=== PATIENT | female | born 1970 | race Caucasian/White ===

== ENCOUNTER 2017-10-18 16:07 | Emergency (ER) | payer MEDICAID, OTHER ==
[2017-10-18 16:30] VITALS: BP 149/87
--- NOTE | 2017-10-18 16:39 | EDM.PDOC ---
ED HPI GENERAL MEDICAL PROBLEM - General Chief Complaint: Skin Complaint Stated Complaint: abnormal lesion to the left breast Time Seen by Provider: 10/18/17 16:25 Source of Information: Reports: Patient History Limitations: Reports: No Limitations - History of Present Illness INITIAL COMMENTS - FREE TEXT/NARRATIVE: Patient presents ED complaining of a small lesion to the left lateral breast of unknown origin. Patient states she was taking off her bra and noticed it. She was concerned about possible infection or something more serious thus prompting evaluation in the E.D. She's never had this in the past. Unknown when this occurred. There's been no recent trauma that may have precipitated this. Patient offers no additional complaints. - Related Data Allergies Allergy/AdvReac Type Severity Reaction Status Date / Time latex Allergy Rash Verified 10/18/17 16:26 Sulfa (Sulfonamide Allergy Paralysis Verified 10/18/17 16:26 Antibiotics) Home Meds: Home Meds metFORMIN [Glucophage] 1,000 mg PO BID 08/21/14 [History] Insulin Glarg,Human.Rec.Analog [LantUS Solostar] 50 units SUBCUT BEDTIME [History] Fish Oil/Drifting-3 Fatty Acids [Fish Oil 1,000 MG] 1 gm PO BID 02/27/16 [History] Magnesium Oxide [Magnesium] 1 tab PO BID 02/27/16 [History] Pravastatin [Pravachol] 10 mg PO DAILY 02/27/16 [History] Aspirin 1 tab PO DAILY 11/27/16 [History] Calcium Carbonate/Vitamin D3 [Calcium 600 + Vit D 200] 1 tab PO DAILY 11/27/16 [ History] Ciprofloxacin HCl [Cipro] 500 mg PO BID #6 tablet 11/27/16 [Rx] Insulin Aspart [Novolog] 2 - 20 unit SQ TID 11/27/16 [History] Methocarbamol [Robaxin] 500 mg PO TID PRN 11/27/16 [History] Ondansetron [Zofran ODT] 4 mg PO Q6H PRN #20 tab.dis 11/27/16 [Rx] hydrOXYzine HCl [Atarax] 25 mg PO QID PRN 11/27/16 [History] Past Medical History HEENT History: Reports: Cataract Cardiovascular History: Reports: High Cholesterol [employer] PROF[employer]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: Reports: Musculoskeletal History: Reports: Back Pain, Chronic Endocrine/Metabolic History: Reports: Diabetes, Type II - Past Surgical History Female Surgical History: Reports: Section, Oophorectomy Social & Family History - Tobacco Use Smoking Status *Q: Never Smoker Second Hand Smoke Exposure: No - Caffeine Use Caffeine Use: Reports: Coffee - Alcohol Use Days Per Week of Alcohol Use: 0 - Recreational Drug Use Recreational Drug Use: No ED ROS GENERAL - Review of Systems Review Of Systems: See Below Constitutional: Reports: No Symptoms Respiratory: Reports: No Symptoms (With evaluation to the ED) Cardiovascular: Reports: No Symptoms (With evaluation the ED) GI/Abdominal: Reports: No Symptoms Skin: Reports: Lesions (to left breast) ED EXAM, SKIN/RASH Exam: See Below Exam Limited By: No Limitations General Appearance: Alert, WD/WN, No Apparent Distress Ears: Hearing Grossly Normal Nose: Normal Inspection Throat/Mouth: Normal Voice, No Airway Compromise Neck: Normal Inspection, Supple Respiratory/Chest: No Respiratory Distress, Lungs Clear, Normal Breath Sounds, No Accessory Muscle Use, Chest Non-Tender Cardiovascular: Normal Peripheral Pulses, Regular Rate, Rhythm, No Murmur Peripheral Pulses: 2+: Radial (L) Neurological: Alert, Oriented, CN II-XII Intact, Normal Cognition, No Motor/ Sensory Deficits Psychiatric: Normal Affect, Normal Mood Skin: Warm, Dry Location, Skin: Chest (Left breast: 1 cm x 0.5 cm oval lesion with dark color in the center with language therapist redness surrounding it. With gentle palpation the skin broke expelling minimal blood. Patient has a blood blister. Bacitracin along with dressing applied. ) Course - Vital Signs Last Recorded V/S: Last Vital Signs Temp 97.5 F 10/18/17 16:26 Pulse 74 10/18/17 16:26 Resp BP 149/87 H 10/18/17 16:26 Pulse Ox 97 10/18/17 16:26 - Re-Assessments/Exams Free Text/Narrative Re-Assessment/Exam: Patient has a blood blister to the left lateral breast. Bacitracin and Band-Aid applied. Discharge instructions as documented. Departure - Departure Time of Disposition: 16:41 Disposition: Home, Self-Care 01 Condition: Good Clinical Impression: Blood blister - Discharge Information Referrals: Cristofer Villa MD [Primary Care Provider] - Forms: ED Department Discharge Additional Instructions: Cleanse site twice daily with soap and water, pat dry, reapply to triple antibiotic and dressing if leaking blood. Return to the ED if you develop any new or worsening symptoms.
== END 2017-10-18 17:06 | disposition home or self-care (01) ==
LOC: JD.ED 16:07
DX: S20.122A Blister (nonthermal) of breast, left breast, initial encounter (principal); E78.00 Pure hypercholesterolemia, unspecified; E11.9 Type 2 diabetes mellitus without complications; Z91.040 Latex allergy status; Z88.2 Allergy status to sulfonamides; Z79.4 Long term (current) use of insulin; Z79.82 Long term (current) use of aspirin; Z79.899 Other long term (current) drug therapy; X58.XXXA Exposure to other specified factors, initial encounter
CPT/HCPCS: 99282; 99283

== ENCOUNTER 2018-08-02 19:16 | Emergency (ER) | payer MEDICAID ==
[2018-08-02 19:25] VITALS: BP 157/104
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
[2018-08-02] MEDS ORDERED: Albuterol/Ipratropium 3.0-0.5 MG/3 ML Neb Soln NEB ONE ×3 (21:00→21:38)
[2018-08-02] MEDS ORDERED: predniSONE 20 MG Tab PO ONE (21:39)
--- NOTE | 2018-08-03 07:39 | CR ---
Chest: Portable view of the chest was obtained. Comparison: Prior chest x-ray of 02/27/16. Heart size and mediastinum are within normal limits for portable technique. Lungs are clear. Bony structures are grossly intact. Impression: 1. Nothing acute is seen on portable chest x-ray. Diagnostic code #1
== END 2018-08-02 22:20 | disposition home or self-care (01) ==
LOC: JD.ED 19:16
DX: J45.31 Mild persistent asthma with (acute) exacerbation (principal); I10 Essential (primary) hypertension; E11.9 Type 2 diabetes mellitus without complications; Z88.2 Allergy status to sulfonamides; Z91.040 Latex allergy status; Z87.891 Personal history of nicotine dependence; Z79.4 Long term (current) use of insulin; Z79.899 Other long term (current) drug therapy
CPT/HCPCS: 36415; 71045; 80053; 81001; 82553; 83036; 83735; 83880; 84484; 85007; 85027; 85379; 85610; 86140; 93005; 94640; 99285; A9270; 99284; J7620-GY

== ENCOUNTER 2019-07-07 09:43 | Emergency (ER) | payer MEDICAID ==
[2019-07-07 10:05] VITALS: BP 153/119
[2019-07-07] MEDS ORDERED: Sodium Chloride 0.9% 10 ML Syringe FLUSH PRN (10:15)
--- NOTE | 2019-07-07 11:32 | EDM.PDOC ---
ED HPI GENERAL MEDICAL PROBLEM - General Chief Complaint: TOMOGRAPHIC TECH Problem Stated Complaint: VAGINAL BLEEDING Time Seen by Provider: 07/07/19 10:02 Source of Information: Reports: Patient History Limitations: Reports: No Limitations - History of Present Illness INITIAL COMMENTS - FREE TEXT/NARRATIVE: The patient presents with hematuria and pressure in her pelvis. This started last night. She has urgency and frequency of urination. She denies any vaginal bleeding. She is wondering if she has a UTI. She denies fever, chills , cough, chest pain or shortness of breath. She does not think she is . Onset: Gradual Duration: Day(s): (last night) Location: Reports: Abdomen, Pelvis Quality: Reports: Pressure Severity: Moderate Improves with: Reports: None Worsens with: Reports: None Associated Symptoms: Reports: No Other Symptoms - Related Data Allergies Allergy/AdvReac Type Severity Reaction Status Date / Time latex Allergy Rash Verified 10/21/18 14:40 pravastatin AdvReac Muscle Verified 07/07/19 10:06 Aches Sulfa (Sulfonamide AdvReac Paralysis Verified 07/07/19 10:20 Antibiotics) Home Meds: Home Meds metFORMIN [Glucophage] 1,000 mg PO BID 08/21/14 [History] Insulin Glarg,Human.Rec.Analog [LantUS Solostar] 50 units SUBCUT BEDTIME [History] Fish Oil/[place]-3 Fatty Acids [Fish Oil 1,000 MG] 1 gm PO BID 02/27/16 [History] Magnesium Oxide [Magnesium] 1 tab PO BID 02/27/16 [History] Aspirin 1 tab PO DAILY 11/27/16 [History] Calcium Carbonate/Vitamin D3 [Calcium 600 + Vit D 200] 1 tab PO DAILY 11/27/16 [ History] Methocarbamol [Robaxin] 500 mg PO TID PRN 11/27/16 [History] Ondansetron [Zofran ODT] 4 mg PO Q6H PRN #20 tab.dis 11/27/16 [Rx] hydrOXYzine HCl [Atarax] 25 mg PO QID PRN 11/27/16 [History] Albuterol [Proventil] 2.5 mg INH QIDRT PRN #60 neb 08/02/18 [Rx] Albuterol [Ventolin HFA] 2 puff INH Q6H PRN 10/21/18 [History] Citalopram [Citalopram HBr] 20 mg PO DAILY 10/21/18 [History] Montelukast [Singulair] 10 mg PO DAILY 10/21/18 [History] Cephalexin [Keflex] 500 mg PO BID #10 capsule 07/07/19 [Rx] Exenatide Microspheres [Bydureon Pen] WEEKLY 07/07/19 [History] Past Medical History HEENT History: Reports: Cataract Cardiovascular History: Reports: High Cholesterol, Hypertension Respiratory History: Reports: Asthma TOMOGRAPHIC TECH History: Reports: Musculoskeletal History: Reports: Back Pain, Chronic Endocrine/Metabolic History: Reports: Diabetes, Type II - Past Surgical History Female Surgical History: Reports: Section, Oophorectomy Social & Family History - Family History Family Medical History: Noncontributory - Tobacco Use Smoking Status *Q: Never Smoker - Caffeine Use Caffeine Use: Reports: Coffee - Recreational Drug Use Recreational Drug Use: No ED ROS GENERAL - Review of Systems Review Of Systems: See Below Constitutional: Reports: No Symptoms HEENT: Reports: No Symptoms Respiratory: Reports: No Symptoms Cardiovascular: Reports: No Symptoms Endocrine: Reports: No Symptoms GI/Abdominal: Reports: Abdominal Pain. Denies: Diarrhea, Nausea, Vomiting : Reports: Frequency, Hematuria, Urgency. Denies: Dysuria ED EXAM, GI/ABD - Physical Exam Exam: See Below Exam Limited By: No Limitations General Appearance: Alert, No Apparent Distress Ears: Normal External Exam Nose: Normal Inspection Head: Atraumatic, Normocephalic Neck: Normal Inspection Respiratory/Chest: No Respiratory Distress, Lungs Clear, Normal Breath Sounds Cardiovascular: Regular Rate, Rhythm, No Edema, No Murmur GI/Abdominal Exam: Soft, Non-Tender, No Organomegaly, No Mass Back Exam: Normal Inspection Extremities: Normal Inspection Course - Vital Signs Last Recorded V/S: Last Vital Signs Temp 97.3 F 07/07/19 10:01 Pulse 77 07/07/19 10:01 Resp 17 07/07/19 10:01 BP 153/119 H 07/07/19 10:01 Pulse Ox 99 07/07/19 10:01 - Orders/Labs/Meds Orders: Active Orders 24 hr Category Date Time Status Cardiac Monitoring [RC] . DIRECTED Care 07/07/19 10:15 Inactive EKG Documentation Completion [RC] STAT Care 07/07/19 10:15 Inactive Peripheral IV Care [RC] . DIRECTED Care 07/07/19 10:15 Inactive Peripheral IV Insertion Adult [OM.PC] Stat Oth 07/07/19 10:15 Ordered Labs: Laboratory Tests 07/07/19 07/07/19 07/07/19 Range/Units 10:13 10:50 10:50 WBC 10.60 H (3.98-10.04) K/mm3 RBC 4.67 (3.98-5.22) M/mm3 Hgb 14.6 (11.2-15.7) gm/L Hct 44.3 (34.1-44.9) % MCV 94.9 H (79.4-94.8) fl MCH 31.3 (25.6-32.2) pg MCHC 33.0 (32.2-35.5) g/dl RDW Std Deviation 43.5 (36.4-46.3) fL Plt Count 316 (182-369) K/mm3 MPV 8.5 L (9.4-12.3) fl Neut % (Auto) 61.0 (34.0-71.1) % Lymph % (Auto) 30.7 (19.3-51.7) % [place] % (Auto) 6.2 (4.7-12.5) % Eos % (Auto) 1.7 (0.7-5.8) Baso % (Auto) 0.2 (0.1-1.2) % Neut # (Auto) 6.47 H (1.56-6.13) K/mm3 Lymph # (Auto) 3.25 (1.18-3.74) K/mm3 [place] # (Auto) 0.66 H (0.24-0.36) K/mm3 Eos # (Auto) 0.18 (0.04-0.36) K/mm3 Baso # (Auto) 0.02 (0.01-0.08) K/mm3 Sodium 137 (136-145) mEq/L Potassium 4.5 (3.5-5.1) mEq/L Chloride 101 (98-107) mEq/L Carbon Dioxide 25 (21-32) mEq/L Anion Gap 15.5 H (5-15) BUN 19 H (7-18) mg/dL Creatinine 0.7 (0.55-1.02) mg/dL Est Cr Clr Drug Dosing TNP Estimated GFR (MDRD) > 60 (>60) mL/min BUN/Creatinine Ratio 27.1 H (14-18) Glucose 181 H (74-106) mg/dL Calcium 8.9 (8.5-10.1) mg/dL Total Bilirubin 0.3 (0.2-1.0) mg/dL AST 19 (15-37) U/L ALT 42 (14-59) U/L Alkaline Phosphatase 69 (46-116) U/L Total Protein 8.2 (6.4-8.2) g/dl Albumin 3.7 (3.4-5.0) g/dl Globulin 4.5 gm/dL Albumin/Globulin Ratio 0.8 L (1-2) Urine Color Red H (Yellow) Urine Appearance Cloudy H (Clear) Urine pH 5.5 (5.0-8.0) Ur Specific [place] 1.020 (1.005-1.030) Urine Protein 3+ H (Negative) Urine Glucose (UA) Negative (Negative) Urine Ketones 1+ H (Negative) Urine Occult Blood 3+ H (Negative) Urine Nitrite Positive H (Negative) Urine Bilirubin 3+ H (Negative) Urine Urobilinogen 2.0 H (0.2-1.0) Ur Leukocyte Esterase 3+ H (Negative) Urine RBC Too numerous to cnt H (0-5) /hpf Urine WBC Too numerous to cnt H (0-5) /hpf Ur Epithelial Cells Not seen (0-5) /hpf Urine Bacteria Few (FEW) /hpf Urine Mucus Not seen (FEW) /hpf Meds: Medications Discontinued Medications Generic Name Dose Route Start Last Admin Trade Name Freq PRN Reason Stop Dose Admin Sodium Chloride 10 ml 07/07/19 10:15 Saline Flush FLUSH ASDIRECTED PRN Keep Vein Open - Re-Assessments/Exams Free Text/Narrative Re-Assessment/Exam: 07/07/19 11:31 I have ordered labs and a UA. Her UA shows blood and a UTI. 07/07/19 11:48 Her WBC was 10.6. Her glucose was 181. Her kidney functions are normal. I will get her on some keflex. Departure - Departure Time of Disposition: 11:50 Disposition: Home, Self-Care 01 Condition: Good Clinical Impression: UTI (urinary tract infection) Qualifiers: Urinary tract infection type: acute cystitis Hematuria presence: with hematuria Qualified Code(s): N30.01 - Acute cystitis with hematuria - Discharge Information *PRESCRIPTION DRUG MONITORING PROGRAM REVIEWED*: No *COPY OF PRESCRIPTION DRUG MONITORING REPORT IN PATIENT CAROLINE: No Prescriptions: Cephalexin [Keflex] 500 mg PO BID #10 capsule Referrals: Cristofer Villa MD [Primary Care Provider] - 1 Week Forms: ED Department Discharge Additional Instructions: Take the keflex 2 times per day for 5 days. Drink plenty of fluids. Take tylenol or motrin for pain or fever. Please return if you are worse. - My Orders Last 24 Hours: My Active Orders 07/07/19 10:15 Cardiac Monitoring [RC] . DIRECTED EKG Documentation Completion [RC] STAT Peripheral IV Care [RC] . DIRECTED Peripheral IV Insertion Adult [OM.PC] Stat - Assessment/Plan Last 24 Hours: My Active Orders 07/07/19 10:15 Cardiac Monitoring [RC] . DIRECTED EKG Documentation Completion [RC] STAT Peripheral IV Care [RC] . DIRECTED Peripheral IV Insertion Adult [OM.PC] Stat
== END 2019-07-07 11:57 | disposition home or self-care (01) ==
LOC: JD.ED 09:43
DX: N30.01 Acute cystitis with hematuria (principal); I10 Essential (primary) hypertension; E11.9 Type 2 diabetes mellitus without complications; E78.00 Pure hypercholesterolemia, unspecified; Z79.4 Long term (current) use of insulin; Z79.899 Other long term (current) drug therapy; Z79.82 Long term (current) use of aspirin; Z79.51 Long term (current) use of inhaled steroids; Z88.8 Allergy status to other drugs, medicaments and biological substances; Z91.040 Latex allergy status; Z88.2 Allergy status to sulfonamides; Z90.722 Acquired absence of ovaries, bilateral
CPT/HCPCS: 36415; 80053; 81001; 85025; 99284

== ENCOUNTER 2019-08-30 20:32 | Emergency (ER) | payer MEDICAID ==
[2019-08-30 20:53] VITALS: BP 152/110; PULSE 97
--- NOTE | 2019-08-30 21:37 | EDM.PDOC ---
ED HPI GENERAL MEDICAL PROBLEM - General Chief Complaint: Back Pain or Injury Stated Complaint: LOWER BACK PAIN ON BOTH SIDES Time Seen by Provider: 08/30/19 21:13 Source of Information: Reports: Patient, RN Notes Reviewed History Limitations: Reports: No Limitations - History of Present Illness INITIAL COMMENTS - FREE TEXT/NARRATIVE: Patient is a 48-year-old female who presents to the ED for evaluation of bilateral lower back pain. The patient notes that this been present for around 2 weeks now, she's been taking Tylenol with little to no relief of this pain. Patient is wondering if she might have a kidney infection again. She states that she has been urinating more frequently, for which she has to get up 3 times at night, this is not normal for her. The patient states that she did start a new injectable medication for diabetes as well, thought that that might of been was causing the current back pain. She denies any sort of blood in the urine, any dysuria, states that her back mckeon when she tries to P. Denies any fevers or chills, but states that she has been having some hot and cold flashes , some mild diarrhea and nausea. The patient notes that the back pain is described of a dull constant ache. She has been trying to utilize the chiropractor, but this has not provided much relief as well. She notes that she has had a , and history of a tubal . She denies any vaginal discharge, any foul orders coming from her genital area. She does note some minor pelvic discomfort. She denies any chance of , as she states she has not had sex in multiple years. Bilateral Lower Back Pain Score (Numeric/FACES): 7 - Related Data Allergies Allergy/AdvReac Type Severity Reaction Status Date / Time latex Allergy Rash Verified 08/30/19 20:52 pravastatin AdvReac Muscle Verified 08/30/19 20:52 Aches Sulfa (Sulfonamide AdvReac Paralysis Verified 08/30/19 20:52 Antibiotics) Home Meds: Home Meds metFORMIN [Glucophage] 1,000 mg PO BID 08/21/14 [History] Insulin Glarg,Human.Rec.Analog [LantUS Solostar] 50 units SUBCUT BEDTIME [History] Fish Oil/[place]-3 Fatty Acids [Fish Oil 1,000 MG] 1 gm PO BID 02/27/16 [History] Magnesium Oxide [Magnesium] 1 tab PO BID 02/27/16 [History] Aspirin 1 tab PO DAILY 11/27/16 [History] Calcium Carbonate/Vitamin D3 [Calcium 600 + Vit D 200] 1 tab PO DAILY 11/27/16 [ History] Methocarbamol [Robaxin] 500 mg PO TID PRN 11/27/16 [History] Ondansetron [Zofran ODT] 4 mg PO Q6H PRN #20 tab.dis 11/27/16 [Rx] hydrOXYzine HCl [Atarax] 25 mg PO QID PRN 11/27/16 [History] Albuterol [Ventolin HFA] 2 puff INH Q6H PRN 10/21/18 [History] Citalopram [Citalopram HBr] 20 mg PO DAILY 10/21/18 [History] Montelukast [Singulair] 10 mg PO DAILY 10/21/18 [History] Exenatide Microspheres [Bydureon Pen] 1 injection INJECT WEEKLY 07/07/19 [ History] Past Medical History HEENT History: Reports: Cataract Cardiovascular History: Reports: High Cholesterol, Hypertension Respiratory History: Reports: Asthma Gastrointestinal History: Reports: None Genitourinary History: Reports: None 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: Musculoskeletal History: Reports: Back Pain, Chronic Neurological History: Reports: None Psychiatric History: Reports: None Endocrine/Metabolic History: Reports: Diabetes, Type II Hematologic History: Reports: None Immunologic History: Reports: None Oncologic (Cancer) History: Reports: None Dermatologic History: Reports: None - Infectious Disease History Infectious Disease History: Reports: None - Past Surgical History Head Surgeries/Procedures: Reports: None Female Surgical History: Reports: Section, Oophorectomy Social & Family History - Family History Family Medical History: Noncontributory - Tobacco Use Smoking Status *Q: Never Smoker - Caffeine Use Caffeine Use: Reports: Coffee - Recreational Drug Use Recreational Drug Use: No ED ROS GENERAL - Review of Systems Review Of Systems: See Below Constitutional: Reports: No Symptoms HEENT: Reports: No Symptoms Respiratory: Reports: No Symptoms Cardiovascular: Reports: No Symptoms Endocrine: Reports: No Symptoms GI/Abdominal: Reports: Abdominal Pain (pelvic discomfort), Diarrhea, Nausea. Denies: Constipation, Vomiting : Reports: Dysuria, Frequency, Pain (pelvic discomfort). Denies: Hematuria, Urgency Musculoskeletal: Reports: Back Pain (low back pain) Skin: Reports: No Symptoms Neurological: Reports: No Symptoms Psychiatric: Reports: No Symptoms Hematologic/Lymphatic: Reports: No Symptoms ED EXAM, RENAL/ - Physical Exam Exam: See Below Exam Limited By: No Limitations General Appearance: Alert, WD/WN, No Apparent Distress Respiratory/Chest: No Respiratory Distress, Lungs Clear, Normal Breath Sounds, No Accessory Muscle Use, Chest Non-Tender Cardiovascular: Normal Peripheral Pulses, Regular Rate, Rhythm, No Murmur GI/Abdominal: Normal Bowel Sounds, Soft, Non-Tender, No Distention, No Mass Back Exam: Normal Inspection, Full Range of Motion. No: CVA Tenderness (L), CVA Tenderness (R), Muscle Spasm, Paraspinal Tenderness Extremities: Normal Inspection, Normal Capillary Refill Neurological: Alert, Oriented, Normal Cognition, No Motor/Sensory Deficits Psychiatric: Normal Affect, Normal Mood Skin Exam: Warm, Dry, Intact, Normal Color, No Rash Course - Vital Signs Last Recorded V/S: Last Vital Signs Temp 97.2 F 08/30/19 20:47 Pulse 97 08/30/19 20:47 Resp 16 08/30/19 20:47 BP 152/110 H 08/30/19 20:47 Pulse Ox 97 08/30/19 20:47 - Orders/Labs/Meds Labs: Laboratory Tests 08/30/19 Range/Units 21:36 Urine Color Yellow (Yellow) Urine Appearance Clear (Clear) Urine pH 5.5 (5.0-8.0) Ur Specific [place] 1.025 (1.005-1.030) Urine Protein Negative (Negative) Urine Glucose (UA) Trace H (Negative) Urine Ketones 1+ H (Negative) Urine Occult Blood Negative (Negative) Urine Nitrite Negative (Negative) Urine Bilirubin Negative (Negative) Urine Urobilinogen 0.2 (0.2-1.0) Ur Leukocyte Esterase Negative (Negative) Urine RBC 0-5 (0-5) /hpf Urine WBC 0-5 (0-5) /hpf Ur Squamous Epith Cells 0-5 (0-5) /hpf Urine Bacteria Few (FEW) /hpf Urine Mucus Few (FEW) /hpf - Re-Assessments/Exams Free Text/Narrative Re-Assessment/Exam: 10/22/19 21:37 Patient presents to the ED for the evaluation of bilateral lower back pain. Did order a urinalysis, due to her symptoms as stated in her HPI. 08/31/19 00:07 Patient's urinalysis did come back and demonstrates no sign of a UTI at this time, we will discharge the patient home with general recommendations, and have her follow up with her primary care provider regarding her current diabetic medications. Departure - Departure Time of Disposition: 00:08 Disposition: Home, Self-Care 01 Condition: Fair Clinical Impression: Lower back pain Qualifiers: Chronicity: acute Back pain laterality: bilateral Sciatica presence: without sciatica Qualified Code(s): M54.5 - Low back pain - Discharge Information *PRESCRIPTION DRUG MONITORING PROGRAM REVIEWED*: No Referrals: Cristofer Villa MD [Primary Care Provider] - Forms: ED Department Discharge Additional Instructions: You were evaluated in the ER tonight regarding the lower back pain. A urinalysis was obtained, this did not demonstrate any sort of a UTI. Your pain could still most likely be due to musculoskeletal strain in nature, you may take ibuprofen or Tylenol every 6 hours as needed for further pain relief. Recommend that you follow up with your primary care physician at your next appointment regarding your current diabetic medications, make sure that everything is appropriate for you. Please return to the ED if your symptoms should change or worsen.
== END 2019-08-31 00:14 | disposition home or self-care (01) ==
LOC: JD.ED 20:32
DX: M54.5 Low back pain (principal); E11.36 Type 2 diabetes mellitus with diabetic cataract; H26.9 Unspecified cataract; I10 Essential (primary) hypertension; J45.909 Unspecified asthma, uncomplicated; Z88.2 Allergy status to sulfonamides; Z88.8 Allergy status to other drugs, medicaments and biological substances; Z91.040 Latex allergy status; Z79.4 Long term (current) use of insulin; Z79.899 Other long term (current) drug therapy; Z79.82 Long term (current) use of aspirin
CPT/HCPCS: 81001; 99283

== ENCOUNTER 2020-01-08 06:20 | Emergency (ER) | payer MEDICAID ==
--- NOTE | 2020-01-08 07:05 | EDM.PDOC ---
ED HPI GENERAL MEDICAL PROBLEM - General Chief Complaint: ENT Problem Stated Complaint: SEVERE MOTUH PAIN (POST MOUTH SURGERY) Time Seen by Provider: 01/08/20 06:59 - History of Present Illness INITIAL COMMENTS - FREE TEXT/NARRATIVE: 49-year-old female presents the emergency room with dental pain. On Thursday she had her wisdom teeth removed. She is out of her ibuprofen 800 mg tablets. She ran out of these last night. She has not had any fevers or chills has not noticed any drainage. She has pain radiating and into her ears on both sides. The swelling in her jaw has subsided some. Bilateral Lower Tooth/Teeth Pain Score (Numeric/FACES): 10 - Related Data Allergies Allergy/AdvReac Type Severity Reaction Status Date / Time latex Allergy Rash Verified 01/08/20 06:30 pravastatin AdvReac Muscle Verified 01/08/20 06:30 Aches Sulfa (Sulfonamide AdvReac Paralysis Verified 01/08/20 06:30 Antibiotics) Home Meds: Home Meds metFORMIN [Glucophage] 1,000 mg PO BID 08/21/14 [History] Insulin Glarg,Human.Rec.Analog [LantUS Solostar] 50 units SUBCUT BEDTIME [History] Fish Oil/[place]-3 Fatty Acids [Fish Oil 1,000 MG] 1 gm PO BID 02/27/16 [History] Magnesium Oxide [Magnesium] 1 tab PO BID 02/27/16 [History] Aspirin 1 tab PO DAILY 11/27/16 [History] Calcium Carbonate/Vitamin D3 [Calcium 600 + Vit D 200] 1 tab PO DAILY 11/27/16 [ History] Methocarbamol [Robaxin] 500 mg PO TID PRN 11/27/16 [History] Albuterol [Ventolin HFA] 2 puff INH Q6H PRN 10/21/18 [History] Montelukast [Singulair] 10 mg PO DAILY 10/21/18 [History] Exenatide Microspheres [Bydureon Pen] 1 injection INJECT WEEKLY 07/07/19 [ History] Citalopram [Citalopram HBr] 20 mg PO DAILY 01/08/20 [History] Ibuprofen 800 mg PO Q8H #30 tablet 01/08/20 [Rx] Ondansetron [Zofran ODT] 4 mg PO ASDIRECTED PRN 01/08/20 [History] Past Medical History HEENT History: Reports: Cataract, Impaired Vision Other HEENT History: Wears glasses Cardiovascular History: Reports: High Cholesterol, Hypertension Respiratory History: Reports: Asthma Gastrointestinal History: Reports: None Genitourinary History: Reports: 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: Musculoskeletal History: Reports: Back Pain, Chronic Neurological History: Reports: None Psychiatric History: Reports: None Endocrine/Metabolic History: Reports: Diabetes, Type II Hematologic History: Reports: None Immunologic History: Reports: None Oncologic (Cancer) History: Reports: None Dermatologic History: Reports: None - Infectious Disease History Infectious Disease History: Reports: None - Past Surgical History Head Surgeries/Procedures: Reports: None Female Surgical History: Reports: Section, Oophorectomy Social & Family History - Family History Family Medical History: Noncontributory - Tobacco Use Smoking Status *Q: Former Smoker Years of Tobacco use: 25 Used Tobacco, but Quit: Yes Month/Year Tobacco Last Used: 9 yrs ago - Caffeine Use Caffeine Use: Reports: Coffee - Recreational Drug Use Recreational Drug Use: No ED ROS ENT - Review of Systems Review Of Systems: See Below Constitutional: Reports: No Symptoms HEENT: Reports: Dental Pain Respiratory: Reports: No Symptoms Cardiovascular: Reports: No Symptoms ED EXAM, ENT - Physical Exam Exam: See Below Exam Limited By: No Limitations General Appearance: Alert, No Apparent Distress Eye Exam: Bilateral Eye: Normal Inspection Ears: Normal External Exam, Normal Canal, Hearing Grossly Normal, Normal TMs Nose: Normal Inspection, Normal Mucousa, No Blood Mouth/Throat: Other (Extraction sites visualized no erythema sutures seen) Head: Other (She has some mild ecchymosis under her jaw) Neck: No: Lymphadenopathy (L), Lymphadenopathy (R) Respiratory/Chest: No Respiratory Distress, Lungs Clear, Normal Breath Sounds Cardiovascular: Regular Rate, Rhythm, No Edema, No Murmur Course - Vital Signs Last Recorded V/S: Last Vital Signs Temp 36.7 C 01/08/20 06:30 Pulse 64 01/08/20 06:30 Resp 16 01/08/20 06:30 BP 144/80 H 01/08/20 06:30 Pulse Ox 96 01/08/20 06:30 - Re-Assessments/Exams Free Text/Narrative Re-Assessment/Exam: 03/01/20 07:15 Pain management with the patient having continue the ibuprofen as needed. Offered to give some hydrocodone but she declined as she does not like taking this. Departure - Departure Time of Disposition: 07:05 Disposition: Home, Self-Care 01 Clinical Impression: S/P wisdom tooth extraction - Discharge Information Prescriptions: Ibuprofen 800 mg PO Q8H #30 tablet Referrals: Cristofer Villa MD [Primary Care Provider] - Forms: ED Department Discharge Additional Instructions: Return to the emergency room with any questions problems or worsening symptoms. Take the ibuprofen 1 3 times daily with meals take him on a continuous basis to help control your dental pain continue the antibiotics. Call your oral surgeon on Thursday if needed. Sepsis Event Note - Evaluation Sepsis Screening Result: No Definite Risk - Focused Exam Vital Signs: Vital Signs Temp Pulse Resp BP Pulse Ox 01/08/20 06:30 36.7 C 64 16 144/80 H 96 Date Exam was Performed: 01/08/20 Time Exam was Performed: 07:10
== END 2020-01-08 07:15 | disposition home or self-care (01) ==
LOC: JD.ED 06:20
CPT/HCPCS: 99282; 99283

== ENCOUNTER 2020-04-19 20:39 | Emergency (ER) | payer MEDICAID ==
[2020-04-19 21:26] VITALS: BP 142/96; PULSE 76
[2020-04-19] MEDS ORDERED: Sodium Chloride 0.9% 10 ML Syringe FLUSH PRN (21:27)
[2020-04-19] MEDS ORDERED: Ketorolac 30 MG/ML SDV IVPUSH ONE (21:27)
[2020-04-19] MEDS ORDERED: Ondansetron 4 MG/2 ML SDV IVPUSH ONE (21:39)
--- NOTE | 2020-04-19 21:43 | EDM.PDOC ---
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 She states that 3 weeks ago she was started on oral control pills. Since she took her first pill, she has had continuous vaginal bleeding as well as cramping. States that she is goes through about 2 pads per day however, she is not saturating then. Cramping has been intermittent. States it feels like "contr actions ". Cramping is located midline and does not localize to either the left or the right side. She states that she contacted her PROBE OPERATOR, Dr. Kimble, the first week that this started and was told to continue taking the pills. She also complains of nausea for the last couple days. Yesterday morning, she was unable to keep food down, however throughout the day today she has been able to eat and drink. Denies she was getting ready for work and she experienced worsening of intense cramping. States it feels like it is in her "uterus, ovaries, and hips ". She has been using Tylenol for pain, however she has not taken any since yesterday. Denies a possible that she could be . States she has not had sex in 8 years. Lower Abdomen Pain Score (Numeric/FACES): 7 - Related Data Allergies Allergy/AdvReac Type Severity Reaction Status Date / Time latex Allergy Severe Rash Verified 04/19/20 21:26 pravastatin AdvReac Severe Muscle Verified 04/19/20 21:26 Aches Sulfa (Sulfonamide AdvReac Severe Paralysis Verified 04/19/20 21:26 Antibiotics) Home Meds: Home Meds metFORMIN [Glucophage] 1,000 mg PO BID 08/21/14 [History] Insulin Glarg,Human.Rec.Analog [LantUS Solostar] 50 units SUBCUT BEDTIME 10/18/15 [History] Fish Oil/[place]-3 Fatty Acids [Fish Oil 1,000 MG] 1 gm PO BID 02/27/16 [History] Magnesium Oxide [Magnesium] 1 tab PO BID 02/27/16 [History] Aspirin 1 tab PO DAILY 11/27/16 [History] Calcium Carbonate/Vitamin D3 [Calcium 600 + Vit D 200] 1 tab PO DAILY 11/27/16 [History] Methocarbamol [Robaxin] 500 mg PO TID PRN 11/27/16 [History] Albuterol [Ventolin HFA] 2 puff INH Q6H PRN 10/21/18 [History] Montelukast [Singulair] 10 mg PO DAILY 10/21/18 [History] Citalopram [Citalopram HBr] 20 mg PO DAILY 01/08/20 [History] Ibuprofen 800 mg PO Q8H #30 tablet 01/08/20 [Rx] Ondansetron [Zofran ODT] 4 mg PO ASDIRECTED PRN 01/08/20 [History] Past Medical History HEENT History: Reports: Cataract, Impaired Vision Other HEENT History: Wears glasses Cardiovascular History: Reports: High Cholesterol, Hypertension Respiratory History: Reports: Asthma Gastrointestinal History: Reports: None Genitourinary History: Reports: None 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: Musculoskeletal History: Reports: Back Pain, Chronic Neurological History: Reports: None Psychiatric History: Reports: None Endocrine/Metabolic History: Reports: Diabetes, Type II Hematologic History: Reports: None Immunologic History: Reports: None Oncologic (Cancer) History: Reports: None Dermatologic History: Reports: None - Infectious Disease History Infectious Disease History: Reports: None - Past Surgical History Head Surgeries/Procedures: Reports: None Female Surgical History: Reports: Section, Oophorectomy Social & Family History - Family History Family Medical History: Noncontributory - Tobacco Use Smoking Status *Q: Current Every Day Smoker Years of Tobacco use: 10 Packs/Tins Daily: 0.1 Used Tobacco, but Quit: Yes Month/Year Tobacco Last Used: 2011 Second Hand Smoke Exposure: No - Caffeine Use Caffeine Use: Reports: Coffee - Recreational Drug Use Recreational Drug Use: No ED ROS GENERAL - Review of Systems Review Of Systems: See Below Constitutional: Reports: No Symptoms. Denies: Fever, Chills HEENT: Reports: No Symptoms Respiratory: Reports: No Symptoms Cardiovascular: Reports: No Symptoms Endocrine: Reports: No Symptoms GI/Abdominal: Reports: No Symptoms : Reports: Irregular Menses, Pain, Other (Pelvic cramping). Denies: Dysuria, Flank Pain, Urgency Musculoskeletal: Reports: No Symptoms Skin: Reports: No Symptoms Neurological: Reports: No Symptoms Psychiatric: Reports: No Symptoms Hematologic/Lymphatic: Reports: No Symptoms Immunologic: Reports: No Symptoms ED EXAM, RENAL/ - Physical Exam Exam: See Below Exam Limited By: No Limitations General Appearance: Alert, WD/WN, No Apparent Distress Respiratory/Chest: No Respiratory Distress, Lungs Clear, Normal Breath Sounds, No Accessory Muscle Use, Chest Non-Tender Cardiovascular: Normal Peripheral Pulses, Regular Rate, Rhythm, No Edema, No Gallop, No JVD, No Murmur, No Rub GI/Abdominal: Normal Bowel Sounds, Soft, No Organomegaly, No Distention, No Abnormal Bruit, No Mass, Tender (mild suprapubic) Neurological: Alert, Oriented, CN II-XII Intact, Normal Cognition, Normal Gait, Normal Reflexes, No Motor/Sensory Deficits Psychiatric: Normal Affect, Normal Mood Skin Exam: Warm, Dry, Intact, Normal Color, No Rash Course - Vital Signs Last Recorded V/S: Last Vital Signs Temp 98 F 04/19/20 21:19 Pulse 76 04/19/20 21:19 Resp 20 04/19/20 21:19 BP 142/96 H 04/19/20 21: Pulse Ox 99 04/19/20 21:19 - Orders/Labs/Meds Labs: Laboratory Tests 04/19/20 04/19/20 04/19/20 Range/Units 21:37 21:37 21:37 WBC 8.71 (3.98-10.04) K/mm3 RBC 4.68 (3.98-5.22) M/mm3 Hgb 14.8 (11.2-15.7) gm/dl Hct 44.9 (34.1-44.9) % MCV 95.9 H (79.4-94.8) fl MCH 31.6 (25.6-32.2) pg MCHC 33.0 (32.2-35.5) g/dl RDW Std Deviation 46.5 H (36.4-46.3) fL Plt Count 289 (182-369) K/mm3 MPV 9.2 L (9.4-12.3) fl Neut % (Auto) 62.0 (34.0-71.1) % Lymph % (Auto) 30.4 (19.3-51.7) % [place] % (Auto) 6.3 (4.7-12.5) % Eos % (Auto) 0.9 (0.7-5.8) Baso % (Auto) 0.2 (0.1-1.2) % Neut # (Auto) 5.39 (1.56-6.13) K/mm3 Lymph # (Auto) 2.65 (1.18-3.74) K/mm3 [place] # (Auto) 0.55 H (0.24-0.36) K/mm3 Eos # (Auto) 0.08 (0.04-0.36) K/mm3 Baso # (Auto) 0.02 (0.01-0.08) K/mm3 Sodium 137 (136-145) mEq/L Potassium 4.3 (3.5-5.1) mEq/L Chloride 103 (98-107) mEq/L Carbon Dioxide 24 (21-32) mEq/L Anion Gap 14.3 (5-15) BUN 19 H (7-18) mg/dL Creatinine 0.9 (0.55-1.02) mg/dL Est Cr Clr Drug Dosing TNP Estimated GFR (MDRD) > 60 (>60) mL/min BUN/Creatinine Ratio 21.1 H (14-18) Glucose 303 H (74-106) mg/dL Calcium 8.7 (8.5-10.1) mg/dL Total Bilirubin 0.3 (0.2-1.0) mg/dL AST 10 L (15-37) U/L ALT 18 (14-59) U/L Alkaline Phosphatase 58 (46-116) U/L Total Protein 7.5 (6.4-8.2) g/dl Albumin 3.5 (3.4-5.0) g/dl Globulin 4.0 gm/dL Albumin/Globulin Ratio 0.9 L (1-2) HCG, Quant < 1.0 mIU/mL Meds: Medications Discontinued Medications Generic Name Dose Route Start Last Admin Trade Name Freq PRN Reason Stop Dose Admin Ketorolac Tromethamine 30 mg 04/19/20 21:27 04/19/20 21:43 Toradol IVPUSH 04/19/20 21:28 30 mg ONETIME ONE Administration Ondansetron HCl 4 mg 04/19/20 21:39 04/19/20 21:43 Zofran IVPUSH 04/19/20 21:40 4 mg ONETIME ONE Administration Sodium Chloride 10 ml 04/19/20 21:27 04/19/20 21:42 Saline Flush FLUSH 10 ml ASDIRECTED PRN Administration Keep Vein Open - Re-Assessments/Exams Free Text/Narrative Re-Assessment/Exam: 04/19/20 22:19 Patient's hemoglobin was found to be normal at 15.8. Blood work was otherwise unremarkable with the exception of a glucose elevated at 303. Patient is feeling much better after the Toradol and Zofran. We will discharge her home with a prescription from the [facility] for naproxen. Recommend that she call Dr. Myers's office tomorrow morning to discuss tonight's visit and schedule a follow-up. She is in agreement with this plan. Discharge instructions as documented. Departure - Departure Time of Disposition: 22:19 Disposition: Home, Self-Care 01 Condition: Good Clinical Impression: Vaginal bleeding, Pelvic cramping - Discharge Information *PRESCRIPTION DRUG MONITORING PROGRAM REVIEWED*: No *COPY OF PRESCRIPTION DRUG MONITORING REPORT IN PATIENT CAROLINE: No Instructions: Abnormal Uterine Bleeding Referrals: Cristofer Villa MD [Primary Care Provider] - Ana Maria Kimble MD [Physician] - Forms: ED Department Discharge Additional Instructions: You were seen in the emergency department today for a 3-week history of vaginal bleeding and pelvic cramping. Blood work was completed and found to be essentially normal, with the exception of your blood sugar being elevated at 303. Your hemoglobin was normal at 14.3 indicating that you are not anemic. While in the ER, you received Toradol for pain and Zofran for nausea which did help your symptoms. You have been given a prescription for naproxen. Take this medication as prescribed for pain. Recommend that you call Dr. Myers's office tomorrow morning to discuss tonight's occurrences and schedule a follow- up. Return to the ER as needed. Sepsis Event Note (ED) - Evaluation Sepsis Screening Result: No Definite Risk
== END 2020-04-19 22:38 | disposition home or self-care (01) ==
LOC: JD.ED 20:39
DX: N93.9 Abnormal uterine and vaginal bleeding, unspecified (principal); I10 Essential (primary) hypertension; J45.909 Unspecified asthma, uncomplicated; E11.9 Type 2 diabetes mellitus without complications; F17.210 Nicotine dependence, cigarettes, uncomplicated; Z79.82 Long term (current) use of aspirin; Z79.4 Long term (current) use of insulin; Z79.899 Other long term (current) drug therapy; Z91.040 Latex allergy status; Z88.8 Allergy status to other drugs, medicaments and biological substances; Z88.2 Allergy status to sulfonamides
CPT/HCPCS: 36415; 80053; 84702; 85025; 96374; 96375; 99284; J1885; J2405

== ENCOUNTER 2020-09-19 18:39 | Emergency (ER) | payer MEDICAID ==
[2020-09-19 19:05] VITALS: BP 148/65; PULSE 58
--- NOTE | 2020-09-19 20:38 | EDM.PDOC ---
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 This has been going on for 3 months. She states she initially thought she was , however has had a number of negative test. She does however state that she "sustained an entire without an elevation in her hCG ". She has been seen in the clinic by Dr. Lozada 1 week ago. He did a pelvic exam as well as wet prep, urinalysis, and test. She states that the wet prep showed she had bacterial vaginosis. She finished her last dose of Flagyl this evening. She states that she started her period today which was due she states between the 10th and the 12th of this month. She is concerned because she had her period but then it stopped. She is had intermittent cramping. She has seen Dr. Myers in the past, however states that she does not want to follow-up with her. Denies any dysuria, fever, or chills. Pelvic Pain Score (Numeric/FACES): 1 - Related Data Allergies Allergy/AdvReac Type Severity Reaction Status Date / Time latex Allergy Severe Rash Verified 09/19/20 19:06 pravastatin AdvReac Severe Muscle Verified 09/19/20 19:06 Aches Sulfa (Sulfonamide AdvReac Severe Paralysis Verified 09/19/20 19:06 Antibiotics) Home Meds: Home Meds Insulin Glarg,Human.Rec.Analog [LantUS Solostar] 50 units SUBCUT BEDTIME 10/18/15 [History] Albuterol [Ventolin HFA] 2 puff INH Q6H PRN 10/21/18 [History] Montelukast [Singulair] 10 mg PO DAILY PRN 10/21/18 [History] Citalopram [Citalopram HBr] 20 mg PO DAILY 01/08/20 [History] Ibuprofen 800 mg PO Q8H #30 tablet 01/08/20 [Rx] Ondansetron [Zofran ODT] 4 mg PO ASDIRECTED PRN 01/08/20 [History] Empagliflozin [Jardiance] 10 mg PO DAILY 09/19/20 [History] Past Medical History HEENT History: Reports: Impaired Vision Other HEENT History: Wears glasses Cardiovascular History: Reports: High Cholesterol Respiratory History: Reports: Asthma Gastrointestinal History: Reports: None Genitourinary History: Reports: None PORTRAIT ARTIST History: Reports: Ectopic , Musculoskeletal History: Reports: Back Pain, Chronic Neurological History: Reports: None Psychiatric History: Reports: None Endocrine/Metabolic History: Reports: Diabetes, Type II Hematologic History: Reports: None Immunologic History: Reports: None Oncologic (Cancer) History: Reports: None Dermatologic History: Reports: None - Infectious Disease History Infectious Disease History: Reports: Chicken Pox, Measles, Mumps - Past Surgical History Head Surgeries/Procedures: Reports: None Female Surgical History: Reports: Section, Oophorectomy Social & Family History - Family History Family Medical History: No Pertinent Family History - Tobacco Use Tobacco Use Status *Q: Former Tobacco User Used Tobacco, but Quit: Yes Month/Year Tobacco Last Used: 08/2020 - Caffeine Use Caffeine Use: Reports: Coffee - Recreational Drug Use Recreational Drug Use: No ED ROS GENERAL - Review of Systems Review Of Systems: See Below Constitutional: Reports: No Symptoms. Denies: Fever, Chills HEENT: Reports: No Symptoms Respiratory: Reports: No Symptoms Cardiovascular: Reports: No Symptoms Endocrine: Reports: No Symptoms GI/Abdominal: Denies: Abdominal Pain, Nausea, Vomiting : Reports: Irregular Menses, Other (Intermittent pelvic cramping.). Denies: Dysuria, Flank Pain Musculoskeletal: Reports: No Symptoms Skin: Reports: No Symptoms Neurological: Reports: No Symptoms Psychiatric: Reports: No Symptoms Hematologic/Lymphatic: Reports: No Symptoms Immunologic: Reports: No Symptoms ED EXAM, RENAL/ - Physical Exam Exam: See Below General Appearance: Alert, WD/WN, No Apparent Distress, Other (Happy and joking. Nontoxic-appearing) Respiratory/Chest: No Respiratory Distress, Lungs Clear, Normal Breath Sounds, No Accessory Muscle Use, Chest Non-Tender Cardiovascular: Normal Peripheral Pulses, Regular Rate, Rhythm, No Edema, No Gallop, No JVD, No Murmur, No Rub GI/Abdominal: Normal Bowel Sounds, Soft, Non-Tender, No Organomegaly, No Distention, No Abnormal Bruit, No Mass Neurological: Alert, Oriented, CN II-XII Intact, Normal Cognition, Normal Gait, Normal Reflexes, No Motor/Sensory Deficits Psychiatric: Normal Affect, Normal Mood Skin Exam: Warm, Dry, Intact, Normal Color, No Rash Course - Vital Signs Last Recorded V/S: Last Vital Signs Temp 97.6 F 09/19/20 19:00 Pulse 58 L 09/19/20 19:00 Resp 18 09/19/20 19:00 BP 148/65 H 09/19/20 19:00 Pulse Ox 99 09/19/20 19:00 - Orders/Labs/Meds Labs: Laboratory Tests 09/19/20 09/19/20 Range/Units 19:00 19:39 HCG, Quant < 1.0 mIU/mL Urine Color Light yellow (Yellow) Urine Appearance Clear (Clear) Urine pH 6.0 (5.0-8.0) Ur Specific [place] 1.015 (1.005-1.030) Urine Protein Negative (Negative) Urine Glucose (UA) 2+ H (Negative) Urine Ketones Negative (Negative) Urine Occult Blood 3+ H (Negative) Urine Nitrite Negative (Negative) Urine Bilirubin Negative (Negative) Urine Urobilinogen 0.2 (0.2-1.0) Ur Leukocyte Esterase Negative (Negative) Urine RBC 0-5 (0-5) /hpf Urine WBC 10-20 H (0-5) /hpf Ur Squamous Epith Cells 0-5 (0-5) /hpf Urine Bacteria Rare (FEW) /hpf Urine Mucus Not seen (FEW) /hpf - Re-Assessments/Exams Free Text/Narrative Re-Assessment/Exam: Patient is a 49-year-old female presenting to the emergency department with complaints of irregular periods and intermittent pelvic cramping. She thinks that she is , however she has had numerous negative test. She was due to have her period September 18- and she did start her period today. She states that she just stopped bleeding. Discussed with her that because her bleeding ceased does not mean that she may not bleed more starting tomorrow. Also discussed with her that perimenopause is a definite possibility as she is 49 years old. We will complete a quantitative hCG as well as urinalysis in the emergency department this evening. Discussed that if this is found to be normal, she should follow-up with a scrap stripper hand for ongoing management of her 3-month history of irregular periods and pelvic cramping. 09/19/20 20:38 Quantitative hCG was less than 1. Urinalysis showed 3+ occult blood but was negative for nitrates or leukocyte esterase indicating that there is not infection present. Discussed that I would recommend follow-up with a scrap stripper hand as with a negative hCG, there is no chance of an ectopic . It is my suspicion that she is perimenopausal which is causing her irregular periods. Discussed return precautions. Discharge instructions as documented. Departure - Departure Time of Disposition: 20:41 Disposition: Home, Self-Care 01 Condition: Good Clinical Impression: Irregular menses, Pelvic pain with negative beta-human chorionic gonadotropin (BhCG) in female - Discharge Information *PRESCRIPTION DRUG MONITORING PROGRAM REVIEWED*: No *COPY OF PRESCRIPTION DRUG MONITORING REPORT IN PATIENT CAROLINE: No Referrals: Cristofer Villa MD [Primary Care Provider] - Darwin Cortes MD [Physician] - Forms: ED Department Discharge Additional Instructions: You were seen in the emergency department today for 3-month history of irregular menstrual periods as well as intermittent pelvic cramping. Beta hCG levels were checked in the emergency department today and were found to be negative. Urinalysis was also checked today and found to be negative for your urinary trac t infection. As we discussed, I would recommend follow-up with gynecology at the next available visit for ongoing management of your symptoms. A referral has been sent to Dr. Darwin Cortes, PORTRAIT ARTIST. The number to schedule with him as listed below. Return to the ER as needed. Sepsis Event Note (ED) - Evaluation Sepsis Screening Result: No Definite Risk - Focused Exam Vital Signs: Vital Signs Temp Pulse Resp BP Pulse Ox 09/19/20 19:00 97.6 F 58 L 18 148/65 H 99
== END 2020-09-19 20:48 | disposition home or self-care (01) ==
LOC: JD.ED 18:39
DX: N92.6 Irregular menstruation, unspecified (principal); J45.909 Unspecified asthma, uncomplicated; E11.9 Type 2 diabetes mellitus without complications; Z79.4 Long term (current) use of insulin; Z79.899 Other long term (current) drug therapy; Z91.040 Latex allergy status; Z88.8 Allergy status to other drugs, medicaments and biological substances; Z88.2 Allergy status to sulfonamides; Z87.891 Personal history of nicotine dependence
CPT/HCPCS: 36415; 81001; 84702; 99282; 99284

== ENCOUNTER 2021-03-15 17:42 | Emergency (ER) | payer MEDICAID ==
--- NOTE | 2021-03-15 18:26 | EDM.PDOC ---
ED HPI GENERAL MEDICAL PROBLEM - General Chief Complaint: General Stated Complaint: HEADACHE/VOMITING Time Seen by Provider: 03/15/21 18:13 Source of Information: Reports: Patient History Limitations: Reports: No Limitations - History of Present Illness INITIAL COMMENTS - FREE TEXT/NARRATIVE: 50-year-old female presents to the ED for evaluation of suspected exposure to toxins in her home environment. She has housing provided through [facility] and therefore has to take what she is provided with. Currently she is residing in a old mobile home which she states she fell to the floor of walking through the front door within the last 2 weeks. She appreciates that there seems to be mold growing under the floor boards. There is a strong smell of sewer tapper gas in the home she suspects due to inappropriate sewage drainage from the home into an underground collection chamber. She did have MD you come over again today to check for carbon oxide and H2S gas and apparently neither one of the gases were identified with the sniffers. She presents with a paroxysmal cough but she does smoke cigarettes and therefore does have a mild chronic bronchitis. She states occasionally she will cough to the point of emesis or losing control of her bladder. She suffers from recurrent chronic headaches which she blames on the environment as well. At present she is concerned of the possibility of . She is age 50 with a last known menstrual period was February 21 to the best of her knowledge. No fevers night sweats loss of weight or change in appetite. Onset: Other (Symptoms have been going on for several months. Worse since warmer climate has developed in [place].) Onset Date: 01/03/21 (For guesstimates towards the end of December.) Duration: Week(s):, Constant (Symptoms are worse when she enters her mobile home.) Location: Reports: Chest (Chronic paroxysmal cough to the point of emesis at times. This also causes her to lose control of her urinary bladder at times.) Quality: Reports: Other (Primarily nausea, headache, paroxysmal nonproductive cough.) Severity: Moderate Improves with: Reports: Other (Symptoms improve when she leaves her mobile home that she is currently living in. Therefore she is suspicious of a toxin in the home.) Worsens with: Reports: Other (Symptoms seem to occur upon entering her residence and living in her mobile home that is she is being provided by [facility]--a government owned property.) Context: Denies: Activity, Exercise, Lifting, Sick Contact, Trauma, Other Associated Symptoms: Reports: Cough, cough w sputum (Very rare sputum production. No hemoptysis.), Headaches, Loss of Appetite, Malaise, Nausea/Vomiting. Denies: Fever/Chills, Rash, Seizure, Shortness of Breath, Syncope Treatments E D TECH: Reports: Other (see below) (Only prescribed medications.) - Related Data Allergies Allergy/AdvReac Type Severity Reaction Status Date / Time latex Allergy Severe Rash Verified 03/15/21 18:32 pravastatin AdvReac Severe Muscle Verified 03/15/21 18:32 Aches Sulfa (Sulfonamide AdvReac Severe Paralysis Verified 03/15/21 18:32 Antibiotics) Home Meds: Home Meds Insulin Glarg,Human.Rec.Analog [LantUS Solostar] 50 units SUBCUT BEDTIME 10/18/15 [History] Citalopram [Citalopram HBr] 20 mg PO DAILY 01/08/20 [History] Ibuprofen 800 mg PO Q8H #30 tablet 01/08/20 [Rx] Empagliflozin [Jardiance] 10 mg PO DAILY 09/19/20 [History] Past Medical History HEENT History: Reports: Impaired Vision Other HEENT History: Wears glasses Cardiovascular History: Reports: High Cholesterol Respiratory History: Reports: Asthma Gastrointestinal History: Reports: None Genitourinary History: Reports: None RADIOLOGY RN History: Reports: Ectopic , Musculoskeletal History: Reports: Back Pain, Chronic Neurological History: Reports: None Psychiatric History: Reports: Anxiety, Depression Endocrine/Metabolic History: Reports: Diabetes, Type II (Using Jardiance and Lantus insulin for diabetes control.), Obesity/BMI 30+ Hematologic History: Reports: None Immunologic History: Reports: None Oncologic (Cancer) History: Reports: None Dermatologic History: Reports: None - Infectious Disease History Infectious Disease History: Reports: Chicken Pox, Measles, Mumps - Past Surgical History Head Surgeries/Procedures: Reports: None Female Surgical History: Reports: Section, Oophorectomy Social & Family History - Family History Family Medical History: No Pertinent Family History - Caffeine Use Caffeine Use: Reports: Coffee - Living Situation & Occupation Living situation: Reports: Single Occupation: Unemployed ED ROS GENERAL - Review of Systems Review Of Systems: See Below Constitutional: Reports: Malaise, Weakness, Fatigue, Decreased Appetite. Denies: Fever, Chills HEENT: Reports: No Symptoms, Glasses Respiratory: Reports: Shortness of Breath, Wheezing, Cough. Denies: Pleuritic Chest Pain (Rare wheezing), Hemoptysis (Intermittent paroxysmal minimally productive cough.) Cardiovascular: Reports: Blood Pressure Problem, Dyspnea on Exertion (Sometimes), Lightheadedness. Denies: Chest Pain, Claudication, Orthopnea Endocrine: Reports: Fatigue GI/Abdominal: Reports: Nausea, Vomiting (Intermittent nausea vomiting.). Denies: Abdominal Pain, Anorexia, Black Stool, Bloody Stool, Constipation, Diarrhea, Decreased Appetite, Difficulty Swallowing, Distension, Flatus : Reports: Incontinence (Primarily stress incontinence particular with coughing severely.) Musculoskeletal: Reports: No Symptoms Skin: Reports: No Symptoms Neurological: Reports: No Symptoms, Headache (Almost daily headache when she is in her current home environment). Denies: Confusion, Dizziness Psychiatric: Reports: Anxiety, Depression Hematologic/Lymphatic: Reports: No Symptoms Immunologic: Reports: No Symptoms ED EXAM, GENERAL - Physical Exam Exam: See Below Exam Limited By: No Limitations General Appearance: Alert, WD/WN, No Apparent Distress, Other (Temperature is 36.6 degrees. Heart rate was 78 and sinus respiratory was 18 with O2 sats of 97% on room air. BP mildly elevated at 148/97.) Eye Exam: Bilateral Eye: Normal Fundi (No scleral icterus or blepharal pallor.), PERRL Throat/Mouth: Normal Inspection, Normal Lips, Normal Oropharynx Head: Atraumatic, Normocephalic Neck: Normal Inspection, Supple, Non-Tender, Full Range of Motion. No: Carotid Bruit, Lymphadenopathy (L), Lymphadenopathy (R) Respiratory/Chest: No Respiratory Distress, Lungs Clear, Normal Breath Sounds, No Accessory Muscle Use. No: Crackles, Rales, Rhonchi, Wheezing Cardiovascular: Normal Peripheral Pulses, Regular Rate, Rhythm, No Edema, No Gallop, No JVD, No Murmur Peripheral Pulses: 2+: Posterior Tibial (L), Posterior Tibial (R), Dorsalis Pedis (L), Dorsalis Pedis (R), 3+: Carotid (L), Carotid (R) GI/Abdominal: Normal Bowel Sounds, Soft, Non-Tender, No Organomegaly, No Abnormal Bruit, No Mass, Pelvis Stable, Other (Mildly obese.) Back Exam: Normal Inspection, Full Range of Motion. No: CVA Tenderness (L), CVA Tenderness (R) Extremities: Normal Inspection, Normal Range of Motion, Non-Tender, No Pedal Edema Neurological: Alert, Oriented, CN II-XII Intact, Normal Cognition Psychiatric: Normal Affect, Anxious Skin Exam: Warm, Dry, Intact, Normal Color, No Rash Course - Vital Signs Last Recorded V/S: Last Vital Signs Temp 36.6 C 03/15/21 18:24 Pulse 78 03/15/21 18:24 Resp 18 03/15/21 18:24 BP 148/97 H 03/15/21 18:24 Pulse Ox 97 03/15/21 18:24 - Radiology Interpretation Free Text/Narrative:: 50-year-old female presents to the ED looking for answers about her chronic illness that may be due to a toxin in her home. She and her 10-year-old son live in a mobile home that is provided to them through the [employer] program i.e. government sponsored homes. By the sounds of things this mobile home she resides and is in very poor condition. She states she fell through the floor boards walking through the front door several weeks ago in the sew out operator of the trailers not come to fix it yet. She indicates that there is black mold in the home. I cannot prove this. Her chief complaint is that of chronic paroxysmal cough to the point of emesis at times as well as loss of urinary control. Chronic headaches intermittent nausea and vomiting. She states when she walks into her mobile home there is a strong smell of sewer tapper gas that makes her condition worse. She is concerned about possible H to S gas exposure and carbon monoxide exposure and black mold toxins. She did have MD [facility] come over to check her home today and they did not find any elevation of age to ask as her carbon oxide in the home using their sniffers which are extremely sensitive for these gases. Therefore it is a possibility that there is black mold in the home that can produce a toxin that can cause chronic illness. I offered her a chest x-ray to make sure there was no evidence of fungal infection in her lungs. Otherwise there is no test that can test for black mold toxins. She is age 50 states that she is sexually active and therefore could possibly be . She believes her last known menstrual period was February 21 therefore she would not really be due for another 8 days. Plan will be to have a portable chest x- ray done covering the abdomen with lead apron. - Re-Assessments/Exams Free Text/Narrative Re-Assessment/Exam: 03/15/21 19:05: Portable chest x-ray is completely within normal limits. Normal cardiac silhouette apparent lung parenchyma is clear with no evidence of any infection. Patient reassured in this regard. I have nothing else to offer at this point time. She did not want to take a prescription for Zofran I think mostly because she does not have money to pay for it. I offered her Zofran while she was in the department but she declined as well. Advised my best advice would be to move away from the home or certainly see if alternative housing is not available to her through the home in [employer] development sponsorship through the government. Departure - Departure Time of Disposition: 18:59 Disposition: Home, Self-Care 01 Clinical Impression: Contact with and (suspected) exposure to mold Chronic bronchitis Qualifiers: Chronic bronchitis type: unspecified Qualified Code(s): J42 - Unspecified chronic bronchitis - Discharge Information *PRESCRIPTION DRUG MONITORING PROGRAM REVIEWED*: Not Applicable *COPY OF PRESCRIPTION DRUG MONITORING REPORT IN PATIENT CAROLINE: Not Applicable Instructions: Chronic Bronchitis, Adult Referrals: Cristofer Villa MD [Primary Care Provider] - Forms: ED Department Discharge Additional Instructions: Evaluation in the emergency room today in regards to both you and your son feeling ill. It appears that there is indeed a toxin likely in your home likely coming from mold by your history. H2S gas is rare to be found in the home unless there are an underground well or fractured sewer tapper pipes. This provides a sewer tapper gas smell or rotten egg smell but usually does not have high enough concentrations of the gas to cause acute illness but certainly can make you feel ill long-term. Especially in low doses. Carbon oxide gas usually will come from a furnace that is not working properly and sometimes a gas oven or gas powered close dryer. Carbon monoxide toxicity can make you have a headache naus ea vomiting and feeling generally unwell while exposed to the gas in your home. Mold growing on the floor boards or in the rawls can sometimes produce a toxin that can make you sick long-term. There is no medical test for this toxin it is identified more by people who deal with mold after house has been damaged by water or leaking pipes etc. Chest x-ray done today does not show any exposure to mold spores and no evidence of mold in your lungs. It does sound to me like the current home you are in is likely inhabitable and your best bet would be to try and push for different housing that would be safer for you and your son. Sepsis Event Note (ED) - Focused Exam Vital Signs: Vital Signs Temp Pulse Resp BP Pulse Ox 03/15/21 18:24 36.6 C 78 18 148/97 H 97
[2021-03-15 18:31] VITALS: BP 148/97; PULSE 78
--- NOTE | 2021-03-15 19:02 | CR ---
Chest: PA view of the chest was obtained. Comparison: Prior chest x-ray of 08/02/18. Heart size and mediastinum are normal. Lungs are clear with no acute parenchymal change. No acute osseous abnormality is appreciated. Impression: 1. Nothing acute is seen on PA chest x-ray. 2. No change from previous study is seen. Diagnostic code #1
== END 2021-03-15 19:24 | disposition home or self-care (01) ==
LOC: JD.ED 17:42
DX: J42 Unspecified chronic bronchitis (principal); Z77.120 Contact with and (suspected) exposure to mold (toxic); E11.9 Type 2 diabetes mellitus without complications; Z91.040 Latex allergy status; Z88.8 Allergy status to other drugs, medicaments and biological substances; Z88.2 Allergy status to sulfonamides; Z79.4 Long term (current) use of insulin
CPT/HCPCS: 71045; 71045-26; 99282; 99283-25

== ENCOUNTER 2021-07-09 13:00 | Emergency (ER) | payer MEDICAID ==
[2021-07-09 13:20] VITALS: BP 157/96; PULSE 71
[2021-07-09] MEDS ORDERED: Sodium Chloride 0.9% 10 ML Syringe FLUSH PRN (13:39)
[2021-07-09] MEDS: Ketorolac 30 MG/ML SDV IVPUSH ONE (14:29)
--- NOTE | 2021-07-09 15:03 | EDM.PDOC ---
ED HPI GENERAL MEDICAL PROBLEM - General Chief Complaint: [employer] Problem Stated Complaint: ABD/BACK PAIN Time Seen by Provider: 07/09/21 13:15 Source of Information: Reports: Patient History Limitations: Reports: No Limitations - History of Present Illness INITIAL COMMENTS - FREE TEXT/NARRATIVE: 50-year-old female presents the emergency department with complaints of "pelvic pain". Patient states that she saw Dr. Cortes in September 2020 and was told that she is in perimenopause. She states that she has had regular monthly periods since then and has not missed a period however every month her period does come 10 days early. She states they last approximately 5 to 7 days and she does pass clots. She states that she started her period 4 days ago. And states that it has almost resolved however this morning developed severe pelvic and lower abdominal cramps that radiate to her back bilaterally. She states that it is worse than any menstrual cramping she has ever had. She states that she compares it to labor cramps. She did take hydrocodone for the discomfort and states that it did not help at all. She does have a history of ectopic in the past and states that it is possible for her to be however she does not feel it is very likely. She denies any recent fever, chills, nausea, vomiting or diarrhea. She denies any urinary symptoms. She d enies any dizziness associated with blood loss of menstrual cycle. Lower Abdominal Pain Score (Numeric/FACES): 8 - Related Data Allergies Allergy/AdvReac Type Severity Reaction Status Date / Time latex Allergy Intermediate Rash Verified 03/17/21 10:43 Sulfa (Sulfonamide AdvReac Intermediate Paralysis Verified 03/17/21 10:43 Antibiotics) pravastatin AdvReac Mild Muscle Verified 03/17/21 10:43 Aches Home Meds: Home Meds Insulin Glarg,Human.Rec.Analog [LantUS Solostar] 50 units SUBCUT BEDTIME 10/18/15 [History] Past Medical History HEENT History: Reports: Impaired Vision Other HEENT History: Wears glasses Cardiovascular History: Reports: High Cholesterol Respiratory History: Reports: Asthma Gastrointestinal History: Reports: None Genitourinary History: Reports: None [employer]ATOR History: Reports: Ectopic , Musculoskeletal History: Reports: Back Pain, Chronic Neurological History: Reports: None Psychiatric History: Reports: Anxiety, Depression Endocrine/Metabolic History: Reports: Diabetes, Type II, Obesity/BMI 30+ Hematologic History: Reports: None Immunologic History: Reports: None Oncologic (Cancer) History: Reports: None Dermatologic History: Reports: None - Infectious Disease History Infectious Disease History: Reports: Chicken Pox, Measles, Mumps - Past Surgical History Head Surgeries/Procedures: Reports: None Female Surgical History: Reports: Section, Oophorectomy Other Female Surgeries/Procedures: Left tubal ligation Social & Family History - Family History Family Medical History: No Pertinent Family History - Tobacco Use Tobacco Use Status *Q: Current Every Day Tobacco User Years of Tobacco use: 10 Packs/Tins Daily: 0.3 - Caffeine Use Caffeine Use: Reports: Coffee - Recreational Drug Use Recreational Drug Use: No - Living Situation & Occupation Living situation: Reports: Single Occupation: Unemployed ED ROS GENERAL - Review of Systems Review Of Systems: Comprehensive ROS is negative, except as noted in HPI. ED EXAM, RENAL/ - Physical Exam Exam: See Below Exam Limited By: No Limitations General Appearance: Alert, WD/WN, No Apparent Distress Ears: Normal External Exam, Hearing Grossly Normal Nose: Normal Inspection Throat/Mouth: Normal Inspection, Normal Lips, Normal Voice, No Airway Compromise Head: Atraumatic Neck: Normal Inspection, Supple Respiratory/Chest: No Respiratory Distress, Lungs Clear, Normal Breath Sounds, No Accessory Muscle Use, Chest Non-Tender Cardiovascular: Normal Peripheral Pulses, Regular Rate, Rhythm, No Edema, No Murmur GI/Abdominal: Normal Bowel Sounds, Soft, Tender (Right and left lower quadrant abdominal tenderness as well as suprapubic) Rectal (Female) Exam: Deferred Back Exam: Normal Inspection Extremities: Normal Inspection Neurological: Alert, Oriented, Normal Cognition Psychiatric: Normal Affect Skin Exam: Warm, Dry, Intact, Normal Color, No Rash Lymphatic: No Adenopathy Course - Vital Signs Text/Narrative:: As stated above, 50-year-old female presents with severe lower abdominal/pelvic cramping. States she has been perimenopausal for almost 1 year however she still gets them monthly. And it is fairly regular. She does have periods that last 5 to 7 days with passage of large clots. States that there is a possi bility she could be . Upon assessment, the patient does have significant tenderness to the right and left lower quadrant as well as in the periumbilical area. I have ordered a urine test, urinalysis with micro and culture if indicated. Will obtain labs to include a CBC, CMP, magnesium, and a C-reactive protein. We will place a saline lock and medicate the patient with Toradol 30 mg IV. Last Recorded V/S: Last Vital Signs Temp 97.2 F 07/09/21 13:16 Pulse 71 07/09/21 13:16 Resp 16 07/09/21 13:16 BP 157/96 H 07/09/21 13:16 Pulse Ox 95 07/09/21 13:16 - Orders/Labs/Meds Orders: Active Orders 24 hr Category Date Time Status Transvaginal Non OB [US] Stat Exams 07/09/21 15:50 Ordered CORONAVIRUS COVID-19 FELIX [MOLEC] Stat Lab 07/09/21 15:05 Received Sodium Chloride 0.9% [Saline Flush] Med 07/09/21 13:39 Active 10 ml FLUSH ASDIRECTED PRN Saline Lock Insert [OM.PC] Stat Oth 07/09/21 13:39 Ordered Medication Orders Sodium Chloride (Sodium Chloride 0.9% 10 Ml Syringe) 10 ml FLUSH ASDIRECTED PRN PRN Reason: Keep Vein Open Labs: Laboratory Tests 07/09/21 07/09/21 07/09/21 Range/Units 14:04 14:04 15:05 WBC 7.87 (3.98-10.04) K/mm3 RBC 4.57 (3.98-5.22) M/mm3 Hgb 15.0 (11.2-15.7) gm/dl Hct 44.6 (34.1-44.9) % MCV 97.6 H (79.4-94.8) fl MCH 32.8 H (25.6-32.2) pg MCHC 33.6 (32.2-35.5) g/dl RDW Std Deviation 44.3 (36.4-46.3) fL Plt Count 287 (182-369) K/mm3 MPV 8.7 L (9.4-12.3) fl Neut % (Auto) 52.6 (34.0-71.1) % Lymph % (Auto) 37.5 (19.3-51.7) % [place] % (Auto) 6.6 (4.7-12.5) % Eos % (Auto) 2.8 (0.7-5.8) Baso % (Auto) 0.4 (0.1-1.2) % Neut # (Auto) 4.14 (1.56-6.13) K/mm3 Lymph # (Auto) 2.95 (1.18-3.74) K/mm3 [place] # (Auto) 0.52 H (0.24-0.36) K/mm3 Eos # (Auto) 0.22 (0.04-0.36) K/mm3 Baso # (Auto) 0.03 (0.01-0.08) K/mm3 Sodium 137 (136-145) mEq/L Potassium 4.4 (3.5-5.1) mEq/L Chloride 102 (98-107) mEq/L Carbon Dioxide 27 (21-32) mEq/L Anion Gap 12.4 (5-15) BUN 12 (7-18) mg/dL Creatinine 0.7 (0.55-1.02) mg/dL Est Cr Clr Drug Dosing 80.42 mL/min Estimated GFR (MDRD) > 60 (>60) mL/min BUN/Creatinine Ratio 17.1 (14-18) Glucose 325 H (70-99) mg/dL Calcium 8.1 L (8.5-10.1) mg/dL Magnesium 1.9 (1.8-2.4) mg/dL Total Bilirubin 0.4 (0.2-1.0) mg/dL AST 12 L (15-37) U/L ALT 30 (14-59) U/L Alkaline Phosphatase 61 (46-116) U/L C-Reactive Protein 0.2 (<1.0) mg/dL Total Protein 7.3 (6.4-8.2) g/dl Albumin 3.5 (3.4-5.0) g/dl Globulin 3.8 gm/dL Albumin/Globulin Ratio 0.9 L (1-2) Urine Color Yellow (Yellow) Urine Appearance Clear (Clear) Urine pH 6.0 (5.0-8.0) Ur Specific Joiner 1.025 (1.005-1.030) Urine Protein Negative (Negative) Urine Glucose (UA) 3+ H (Negative) Urine Ketones Negative (Negative) Urine Occult Blood Negative (Negative) Urine Nitrite Negative (Negative) Urine Bilirubin Negative (Negative) Urine Urobilinogen 0.2 (0.2-1.0) Ur Leukocyte Esterase Negative (Negative) Urine HCG, Qual (NEGATIVE) 07/09/21 Range/Units 15:05 WBC (3.98-10.04) K/mm3 RBC (3.98-5.22) M/mm3 Hgb (11.2-15.7) gm/dl Hct (34.1-44.9) % MCV (79.4-94.8) fl MCH (25.6-32.2) pg MCHC (32.2-35.5) g/dl RDW Std Deviation (36.4-46.3) fL Plt Count (182-369) K/mm3 MPV (9.4-12.3) fl Neut % (Auto) (34.0-71.1) % Lymph % (Auto) (19.3-51.7) % [place] % (Auto) (4.7-12.5) % Eos % (Auto) (0.7-5.8) Baso % (Auto) (0.1-1.2) % Neut # (Auto) (1.56-6.13) K/mm3 Lymph # (Auto) (1.18-3.74) K/mm3 [place] # (Auto) (0.24-0.36) K/mm3 Eos # (Auto) (0.04-0.36) K/mm3 Baso # (Auto) (0.01-0.08) K/mm3 Sodium (136-145) mEq/L Potassium (3.5-5.1) mEq/L Chloride (98-107) mEq/L Carbon Dioxide (21-32) mEq/L Anion Gap (5-15) BUN (7-18) mg/dL Creatinine (0.55-1.02) mg/dL Est Cr Clr Drug Dosing mL/min Estimated GFR (MDRD) (>60) mL/min BUN/Creatinine Ratio (14-18) Glucose (70-99) mg/dL Calcium (8.5-10.1) mg/dL Magnesium (1.8-2.4) mg/dL Total Bilirubin (0.2-1.0) mg/dL AST (15-37) U/L ALT (14-59) U/L Alkaline Phosphatase (46-116) U/L C-Reactive Protein (<1.0) mg/dL Total Protein (6.4-8.2) g/dl Albumin (3.4-5.0) g/dl Globulin gm/dL Albumin/Globulin Ratio (1-2) Urine Color (Yellow) Urine Appearance (Clear) Urine pH (5.0-8.0) Ur Specific Joiner (1.005-1.030) Urine Protein (Negative) Urine Glucose (UA) (Negative) Urine Ketones (Negative) Urine Occult Blood (Negative) Urine Nitrite (Negative) Urine Bilirubin (Negative) Urine Urobilinogen (0.2-1.0) Ur Leukocyte Esterase (Negative) Urine HCG, Qual Negative (NEGATIVE) Meds: Medications Generic Name Dose Route Start Last Admin Trade Name Freq PRN Reason Stop Dose Admin Sodium Chloride 10 ml 07/09/21 13:39 Sodium Chloride 0.9% 10 Ml Syringe FLUSH ASDIRECTED PRN Keep Vein Open Discontinued Medications Generic Name Dose Route Start Last Admin Trade Name Freq PRN Reason Stop Dose Admin Ketorolac Tromethamine 30 mg 07/09/21 13:53 07/09/21 14:29 Ketorolac 30 Mg/Ml Sdv IVPUSH 07/09/21 13:54 Not Given ONETIME ONE - Re-Assessments/Exams Free Text/Narrative Re-Assessment/Exam: 07/09/21 15:51 Hematology reveals a WBC of 7.87, hemoglobin 15.0, hematocrit 44.6, platelet count 287 Chemistry reveals a sodium of 137, potassium 4.4, chloride 102, anion gap 12.4, BUN 12, creatinine 0.7, GFR greater than 60, glucose 325, calcium 8.1, magnesium 1.9 Urinalysis shows 3+ glucose, urine is negative I have ordered a non-OB transvaginal ultrasound 07/09/21 15:59 Patient is wondering how much longer she will need to be here. She states that she needs to get home to her kids and feed them. Discussed with her the fact that her lab work is stable and she is not so I am not worried about ectopic . We will obtain the transvaginal ultrasound and the patient will be discharged home and I will call her with the results. Departure - Departure Time of Disposition: 15:59 Disposition: Home, Self-Care 01 Condition: Good Clinical Impression: Pelvic pain - Discharge Information Instructions: Pain Medicine Instructions, [id number], Pelvic Pain, Female, [id number] Referrals: Cristofer Villa MD [Primary Care Provider] - Forms: ED Department Discharge Additional Instructions: You were seen in the emergency department today with complaints of pelvic pain. Lab work was completed which was essentially unremarkable. test was negative. Transvaginal ultrasound was completed and I will call you with the results of this. 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 Recommend that you take Tylenol 650 mg every 4 hours as needed for pain or ibuprofen 600 mg every 6-8 hours as needed for pain. Should you develop heavy bleeding or passing of large clots, it is strongly recommended that you return to the emergency department. Sepsis Event Note (ED) - Evaluation Sepsis Screening Result: No Definite Risk - Focused Exam Vital Signs: Vital Signs Temp Pulse Resp BP Pulse Ox 07/09/21 13:16 97.2 F 71 16 157/96 H 95 - My Orders Last 24 Hours: My Active Orders 07/09/21 13:39 Sodium Chloride 0.9% [Saline Flush] 10 ml FLUSH ASDIRECTED PRN Saline Lock Insert [OM.PC] Stat 07/09/21 15:05 CORONAVIRUS COVID-19 FELIX [MOLEC] Stat 07/09/21 15:50 Transvaginal Non OB [US] Stat - Assessment/Plan Last 24 Hours: My Active Orders 07/09/21 13:39 Sodium Chloride 0.9% [Saline Flush] 10 ml FLUSH ASDIRECTED PRN Saline Lock Insert [OM.PC] Stat 07/09/21 15:05 CORONAVIRUS COVID-19 FELIX [MOLEC] Stat 07/09/21 15:50 Transvaginal Non OB [US] Stat
--- NOTE | 2021-07-09 16:48 | US ---
Pelvic ultrasound: Multiple real-time images were obtained transvaginally. Comparison: No previous study is available Uterus is anteverted. Nabothian cyst is present. Endometrial thickness is normal at 5 mm. No myometrial abnormality is seen. No free fluid is noted. Right and left ovaries are not well visualized. Measurements: Uterus: Length 9.6 cm, AP height 4.8 cm, transverse width 6.7 cm Impression: 1. Nabothian cyst. 2. Uterus is otherwise unremarkable. 3. Nonvisualized ovaries. Diagnostic code #2
== END 2021-07-09 16:27 | disposition home or self-care (01) ==
LOC: JD.ED 13:00
DX: R10.2 Pelvic and perineal pain (principal); E78.00 Pure hypercholesterolemia, unspecified; E11.9 Type 2 diabetes mellitus without complications; E66.9 Obesity, unspecified; J45.909 Unspecified asthma, uncomplicated; Z68.41 Body mass index [BMI] 40.0-44.9, adult; Z79.4 Long term (current) use of insulin; Z91.040 Latex allergy status; Z88.2 Allergy status to sulfonamides; Z88.8 Allergy status to other drugs, medicaments and biological substances; Z72.0 Tobacco use; Z20.822 Contact with and (suspected) exposure to COVID-19
CPT/HCPCS: 36415; 76830; 76830-26; 80053; 81003; 81025; 83735; 85025; 86140; 99283; 99284-25; U0002

== ENCOUNTER 2022-04-11 17:46 | Emergency (ER) | payer MEDICAID ==
[2022-04-11 18:00] VITALS: BP 157/83; PULSE 88
[2022-04-11] MEDS ORDERED: Sodium Chloride 0.9% 10 ML Syringe FLUSH PRN (18:09)
[2022-04-11] MEDS ORDERED: Ketorolac 30 MG/ML SDV IVPUSH ONE (18:11)
[2022-04-11] MEDS ORDERED: Ondansetron 4 MG/2 ML SDV IVPUSH ONE (18:11)
[2022-04-11] MEDS ORDERED: Sodium Chloride 0.9% 1,000 ML IV STA (18:11)
[2022-04-11] MEDS ORDERED: Ondansetron 4 MG Tab.DIS PO ONE (18:30)
[2022-04-11 18:48] LABS: ESTIMATED GFR > 60 mL/min (>60)
== END 2022-04-11 21:25 | disposition home or self-care (01) ==
LOC: JD.ED 17:46
DX: R10.2 Pelvic and perineal pain (principal); E78.00 Pure hypercholesterolemia, unspecified; E11.9 Type 2 diabetes mellitus without complications; E66.9 Obesity, unspecified; Z68.41 Body mass index [BMI] 40.0-44.9, adult; Z91.040 Latex allergy status; Z88.2 Allergy status to sulfonamides; Z88.8 Allergy status to other drugs, medicaments and biological substances; Z79.4 Long term (current) use of insulin
CPT/HCPCS: 36415; 76830; 76830-26; 80053; 81001; 84703; 85025; 99283; 99284-25

== ENCOUNTER 2022-08-12 15:18 | Emergency (ER) | payer MEDICAID ==
[2022-08-12 17:06] LABS: ESTIMATED GFR 90 mL/min (>60)
[2022-08-13 15:25] VITALS: BP 161/78; PULSE 64
== END 2022-08-12 17:52 | disposition home or self-care (01) ==
LOC: JD.ED 15:18
DX: R07.89 Other chest pain (principal)
CPT/HCPCS: 36415; 71046; 71046-26; 80053; 84484; 85025; 85610; 85730; 93005; 93010; 99283; 99285

== ENCOUNTER 2023-07-12 09:45 | Emergency (ER) | payer MEDICAID ==
[2023-07-12 10:21] LABS: APPEARANCE,URINE CLEAR (Clear); BILIRUBIN,URINE NEGATIVE (Negative); COLOR,URINE YELLOW (Yellow); GLUCOSE,URINE 2+ (Negative); KETONES,URINE NEGATIVE (Negative); LEUKOCYTE ESTERASE,URINE NEGATIVE (Negative); NITRITE,URINE NEGATIVE (Negative); OCCULT BLOOD,URINE NEGATIVE (Negative); PROTEIN,URINE 1+ (Negative); UROBILINOGEN,URINE 0.2 (0.2-1.0)
[2023-07-12 11:10] LABS: RBC,URINE 0-5 /hpf (0-5)
[2023-07-12 11:11] LABS: BACTERIA,URINE MODERATE /hpf (FEW); MUCUS,URINE MODERATE /hpf (FEW); SQUAMOUS EPITHELIAL CELLS,UR 0-5 /hpf (0-5)
[2023-07-12 11:45] LABS: BASOPHILS PERCENT AUTO 0.4 % (0.0-1.0); EOSINOPHILS ABSOLUTE AUTO 0.3 K/mm3 (0.0-0.4); EOSINOPHILS PERCENT AUTO 3.2 % (0.0-6.0); HEMATOCRIT 38.2 % (37.0-47.0); HEMOGLOBIN 12.9 gm/dl (12.0-16.0); IMMATURE GRAN ABSOLUTE AUTO 0.01 K/mm3 (0.00-0.05); IMMATURE GRAN PERCENT AUTO 0.1 % (0.0-0.4); LYMPHOCYTES ABSOLUTE AUTO 2.6 K/mm3 (1.0-4.8); LYMPHOCYTES PERCENT AUTO 33.1 % (24.0-44.0); MEAN CORPUSCULAR HEMOGLOBIN 31.7 pg (28.0-32.0); MEAN CORPUSCULAR HGB CONC 33.8 g/dl (32.0-36.0); MEAN CORPUSCULAR VOLUME 93.9 fl (83.0-99.0); MEAN PLATELET VOLUME 8.6 fl (9.4-12.3); MONOCYTES ABSOLUTE AUTO 0.5 K/mm3 (0.0-0.8); MONOCYTES PERCENT AUTO 6.3 % (0.0-8.0); NEUTROPHILS ABSOLUTE AUTO 4.4 K/mm3 (1.8-7.7); NEUTROPHILS PERCENT AUTO 56.9 % (41.0-71.0); PLATELET COUNT,PLT 228 K/mm3 (150-400); RED BLOOD CELL COUNT 4.07 M/mm3 (4.10-5.30); WHITE BLOOD CELL COUNT,WBC 7.77 K/mm3 (3.9-11.3)
[2023-07-12 12:00] LABS: A/G RATIO 0.8 (1-2); ALBUMIN 3.1 g/dl (3.4-5.0); ANION GAP 12.2 (5-15); BILIRUBIN TOTAL 0.3 mg/dL (0.2-1.0); BUN/CREATININE RATIO 31.7 (14-18); C-REACTIVE PROTEIN 1.3 mg/dL (<1.0); CREATININE 0.6 mg/dL (0.55-1.02); EST CRCL DRUG DOSING (CG) 87.73 mL/min; POTASSIUM,K 4.2 mEq/L (3.5-5.1); PROTEIN TOTAL,TP 6.9 g/dl (6.4-8.2)
[2023-07-12 12:26] VITALS: BP 142/93; PULSE 82
== END 2023-07-12 12:25 | disposition home or self-care (01) ==
LOC: JD.ED 09:45
DX: N39.0 Urinary tract infection, site not specified (principal); E78.00 Pure hypercholesterolemia, unspecified; E11.9 Type 2 diabetes mellitus without complications; E66.9 Obesity, unspecified; Z68.43 Body mass index [BMI] 50.0-59.9, adult; Z87.891 Personal history of nicotine dependence; Z88.2 Allergy status to sulfonamides; Z91.040 Latex allergy status; Z88.8 Allergy status to other drugs, medicaments and biological substances
CPT/HCPCS: 36415; 80053; 81001; 85025; 86140; 99283

== ENCOUNTER 2023-09-20 00:12 | Emergency (ER) | payer MEDICAID ==
[2023-09-20] MEDS ORDERED: Famotidine 20 MG Tab PO ONE (01:03)
[2023-09-20 01:22] VITALS: BP 145/90; PULSE 90
== END 2023-09-20 01:26 | disposition home or self-care (01) ==
LOC: JD.ED 00:12
DX: S80.861A Insect bite (nonvenomous), right lower leg, initial encounter (principal); S80.862A Insect bite (nonvenomous), left lower leg, initial encounter; E11.9 Type 2 diabetes mellitus without complications; E66.9 Obesity, unspecified; Z79.84 Long term (current) use of oral hypoglycemic drugs; Z68.42 Body mass index [BMI] 45.0-49.9, adult; Z79.899 Other long term (current) drug therapy; Z91.040 Latex allergy status; Z79.4 Long term (current) use of insulin; Z88.8 Allergy status to other drugs, medicaments and biological substances; Z88.2 Allergy status to sulfonamides; W57.XXXA Bitten or stung by nonvenomous insect and other nonvenomous arthropods, initial encounter
CPT/HCPCS: 99281; A9270; 99283

== ENCOUNTER 2023-10-11 18:02 | Emergency (ER) | payer MEDICAID ==
[2023-10-11] MEDS ORDERED: Amoxicillin/Clavulanate K 875-125 MG Tab PO ONE (19:49)
[2023-10-11] MEDS ORDERED: Ondansetron 4 MG Tab.DIS PO STA (19:50)
[2023-10-11 20:43] VITALS: BP 142/79; PULSE 74
== END 2023-10-11 20:40 | disposition home or self-care (01) ==
LOC: JD.ED 18:02
DX: K04.7 Periapical abscess without sinus (principal); E11.9 Type 2 diabetes mellitus without complications; F17.210 Nicotine dependence, cigarettes, uncomplicated; Z79.899 Other long term (current) drug therapy; Z79.84 Long term (current) use of oral hypoglycemic drugs; Z79.4 Long term (current) use of insulin; Z88.2 Allergy status to sulfonamides; Z88.8 Allergy status to other drugs, medicaments and biological substances; Z91.040 Latex allergy status
CPT/HCPCS: 99282; A9270; 99283

== ENCOUNTER 2024-03-03 18:33 | Emergency (ER) | payer MEDICAID ==
[2024-03-03] MEDS: Aspirin 81 MG Tab.Chew PO ONE (19:21)
[2024-03-03 19:43] LABS: BASOPHILS PERCENT AUTO 0.3 % (0.0-1.0); EOSINOPHILS ABSOLUTE AUTO 0.2 K/mm3 (0.0-0.4); EOSINOPHILS PERCENT AUTO 1.4 % (0.0-6.0); HEMATOCRIT 37.6 % (37.0-47.0); HEMOGLOBIN 12.8 gm/dl (12.0-16.0); IMMATURE GRAN ABSOLUTE AUTO 0.04 K/mm3 (0.00-0.05); IMMATURE GRAN PERCENT AUTO 0.4 % (0.0-0.4); LYMPHOCYTES ABSOLUTE AUTO 3.1 K/mm3 (1.0-4.8); LYMPHOCYTES PERCENT AUTO 27.5 % (24.0-44.0); MEAN CORPUSCULAR HEMOGLOBIN 32.2 pg (28.0-32.0); MEAN CORPUSCULAR VOLUME 94.5 fl (83.0-99.0); MEAN PLATELET VOLUME 8.4 fl (9.4-12.3); MONOCYTES ABSOLUTE AUTO 0.7 K/mm3 (0.0-0.8); MONOCYTES PERCENT AUTO 6.1 % (0.0-8.0); NEUTROPHILS ABSOLUTE AUTO 7.2 K/mm3 (1.8-7.7); NEUTROPHILS PERCENT AUTO 64.3 % (41.0-71.0); PLATELET COUNT,PLT 254 K/mm3 (150-400); RED BLOOD CELL COUNT 3.98 M/mm3 (4.10-5.30); WHITE BLOOD CELL COUNT,WBC 11.23 K/mm3 (3.9-11.3)
[2024-03-03 20:10] LABS: A/G RATIO 0.9 (1-2); ALBUMIN 3.2 g/dl (3.4-5.0); ANION GAP 11.2 (5-15); BILIRUBIN TOTAL 0.3 mg/dL (0.2-1.0); BUN/CREATININE RATIO 24.3 (14-18); CALCIUM 8.6 mg/dL (8.5-10.1); CREATININE 0.7 mg/dL (0.55-1.02); EST CRCL DRUG DOSING (CG) 77.77 mL/min; MAGNESIUM 1.6 mg/dL (1.8-2.4); POTASSIUM,K 4.2 mEq/L (3.5-5.1); PROTEIN TOTAL,TP 6.7 g/dl (6.4-8.2)
[2024-03-03] MEDS: Albuterol/Ipratropium 3.0-0.5 MG/3 ML Neb Soln NEB ONE (22:15)
[2024-03-03 23:12] VITALS: BP 136/66; PULSE 76
== END 2024-03-03 22:47 | disposition home or self-care (01) ==
LOC: JD.ED 18:33
DX: J40 Bronchitis, not specified as acute or chronic (principal); E11.9 Type 2 diabetes mellitus without complications; Z91.040 Latex allergy status; Z88.2 Allergy status to sulfonamides; Z88.8 Allergy status to other drugs, medicaments and biological substances; Z79.899 Other long term (current) drug therapy; Z79.51 Long term (current) use of inhaled steroids; Z86.16 Personal history of COVID-19; Z79.84 Long term (current) use of oral hypoglycemic drugs; Z79.4 Long term (current) use of insulin; Z87.891 Personal history of nicotine dependence
CPT/HCPCS: 36415; 71045; 71045-26; 80053; 83690; 83735; 84484; 85025; 85379; 93005; 94640; 99285; A9270-GY; J7620-GY

== ENCOUNTER 2024-09-05 16:50 | Emergency (ER) | payer MEDICAID ==
[2024-09-05 17:00] VITALS: BP 158/94; PULSE 83
== END 2024-09-05 18:30 | disposition home or self-care (01) ==
LOC: JD.ED 16:50
DX: J06.9 Acute upper respiratory infection, unspecified (principal); B97.89 Other viral agents as the cause of diseases classified elsewhere; I10 Essential (primary) hypertension; J45.909 Unspecified asthma, uncomplicated; E11.9 Type 2 diabetes mellitus without complications; Z86.16 Personal history of COVID-19; Z79.4 Long term (current) use of insulin; Z79.84 Long term (current) use of oral hypoglycemic drugs; Z79.899 Other long term (current) drug therapy; Z91.040 Latex allergy status; Z88.2 Allergy status to sulfonamides; Z88.8 Allergy status to other drugs, medicaments and biological substances
CPT/HCPCS: 71046; 71046-26; 82375; 99282; 99285

== ENCOUNTER 2024-11-03 18:00 | Emergency (ER) | payer MEDICAID ==
[2024-11-03] MEDS: Acetaminophen/HYDROcodone 325-5 MG Tab PO ONE (18:44)
[2024-11-03 19:09] VITALS: BP 125/72; PULSE 78
== END 2024-11-03 19:07 | disposition home or self-care (01) ==
LOC: JD.ED 18:00
DX: S29.012A Strain of muscle and tendon of back wall of thorax, initial encounter (principal); I10 Essential (primary) hypertension; J44.89 Other specified chronic obstructive pulmonary disease; E11.9 Type 2 diabetes mellitus without complications; Z86.16 Personal history of COVID-19; Z90.722 Acquired absence of ovaries, bilateral; Z87.891 Personal history of nicotine dependence; Z88.1 Allergy status to other antibiotic agents; Z88.0 Allergy status to penicillin; Z88.2 Allergy status to sulfonamides; Z88.8 Allergy status to other drugs, medicaments and biological substances; Z79.4 Long term (current) use of insulin; Z79.84 Long term (current) use of oral hypoglycemic drugs; Z79.51 Long term (current) use of inhaled steroids; Z79.899 Other long term (current) drug therapy; X58.XXXA Exposure to other specified factors, initial encounter
CPT/HCPCS: 71101; 99283; A9270

== ENCOUNTER 2024-11-04 16:05 | Emergency (ER) | payer MEDICAID | END 2024-11-04 16:45 | disposition left against medical advice (07) | LOC: JD.ED 16:05 | DX: Z53.21 Procedure and treatment not carried out due to patient leaving prior to being seen by health care provider (principal) ==

== ENCOUNTER 2024-12-02 21:18 | Emergency (ER) | payer MEDICAID ==
[2024-12-02 21:33] VITALS: BP 141/61; PULSE 73
[2024-12-02] MEDS: Albuterol/Ipratropium 3.0-0.5 MG/3 ML Neb Soln NEB ONE (22:01)
[2024-12-02 22:16] LABS: O2 SATURATION VENOUS 54.8; PCO2 VENOUS 48.4 mmHg (41-51); PH,VENOUS 7.34 (7.30-7.40)
[2024-12-02 22:17] LABS: BASE EXCESS VENOUS -0.6 (-4.0-2.0); BICARBONATE,VENOUS 25.2 meq/L (22-26)
== END 2024-12-02 23:08 | disposition home or self-care (01) ==
LOC: JD.ED 21:18
DX: R06.02 Shortness of breath (principal); I10 Essential (primary) hypertension; J44.9 Chronic obstructive pulmonary disease, unspecified; E11.9 Type 2 diabetes mellitus without complications; Z86.16 Personal history of COVID-19; Z79.4 Long term (current) use of insulin; Z88.2 Allergy status to sulfonamides; Z88.1 Allergy status to other antibiotic agents; Z91.040 Latex allergy status; Z88.8 Allergy status to other drugs, medicaments and biological substances
CPT/HCPCS: 71045; 71045-26; 82803; 87428-QW; 94640; 99285; J7620-GY

== ENCOUNTER 2025-08-02 16:19 | Emergency (ER) | payer MEDICAID ==
[2025-08-02 16:41] VITALS: PULSE 85
[2025-08-02 17:50] VITALS: BP 151/95
== END 2025-08-02 17:45 | disposition home or self-care (01) ==
LOC: JD.ED 16:19
DX: J44.1 Chronic obstructive pulmonary disease with (acute) exacerbation (principal); Z88.8 Allergy status to other drugs, medicaments and biological substances; Z91.040 Latex allergy status
CPT/HCPCS: 71046; 94640; 99285; J7512; J7620; A9270-GY